=== PATIENT | male | born 1970 ===

== ENCOUNTER 2020-11-29 10:52 | Emergency (ER) | payer SELFPAY ==
[2020-11-29 10:57] VITALS: BP 141/93; PULSE 90; RESP 18; TEMP 98
--- NOTE | 2020-11-29 11:20 | ED ---
General Adult HPI - General Chief complaint: Recheck/Abnormal Lab/Rx Stated complaint: Wants covid test Source: patient, RN notes reviewed Mode of arrival: ambulatory Limitations: no limitations - History of Present Illness Initial comments: 50-year-old well-appearing male presents to the emergency room alert and oriented 4 for [place] Cov[place]. 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 He has no symptoms. He states he got his second vaccine dose just a few days ago. Severity scale (1-10): 0 Associated Symptoms: denies other symptoms Treatments Prior to Arrival: none - Related Data Allergies Allergy/AdvReac Type Severity Reaction Status Date / Time No Known Allergies Allergy Verified 11/29/20 10:57 Review of Systems ROS Statement: Those systems with pertinent positive or pertinent negative responses have been documented in the HPI. ROS Other: All systems not noted in ROS Statement are negative. Past Medical History Past Medical History: No Reported History History of Any Multi-Drug Resistant Organisms: None Reported Past Surgical History: No Surgical Hx Reported Past Psychological History: No Psychological Hx Reported Smoking Status: Current some day smoker Past Alcohol Use History: Occasional Past Drug Use History: None Reported General Exam Limitations: no limitations General appearance: alert, in no apparent distress Head exam: Present: atraumatic, normocephalic, normal inspection Eye exam: Present: normal appearance, PERRL, EOMI. Absent: scleral icterus, conjunctival injection, periorbital swelling ENT exam: Present: normal exam, normal oropharynx, mucous membranes moist Neck exam: Present: full ROM Respiratory exam: Present: normal lung sounds bilaterally. Absent: respiratory distress, wheezes, rales, rhonchi, stridor, decreased breath sounds Cardiovascular Exam: Present: regular rate, normal rhythm, normal heart sounds. Absent: systolic murmur, diastolic murmur, rubs, gallop, clicks Neurological exam: Present: alert, oriented X3, CN II-XII intact Psychiatric exam: Present: normal affect, normal mood Skin exam: Present: warm, dry, intact, normal color. Absent: rash Course Vital Signs 11/29/20 10:53 Temperature 98.0 F Pulse Rate 90 Respiratory 18 Rate Blood Pressure 141/93 O2 Sat by Pulse 96 Oximetry Medical Decision Making - Medical Decision Making Patient is well-appearing with no complaints. He states he was here only for a Covid test to go back to work. His Covid test was negative. - Lab Data Lab Results 11/29/20 Range/Units 11:18 Coronavirus (PCR) Not Detected (Not Detectd) Disposition Clinical Impression: Normal exam Disposition: HOME SELF-CARE Condition: Good Additional Instructions: Covid test today is negative. Is patient prescribed a controlled substance at d/c from ED?: No Referrals: None,Stated [Primary Care Provider] - 1-2 days Time of Disposition: 12:24
== END 2020-11-29 12:39 | disposition home or self-care (01) ==
LOC: EDBD → EC 10:52
DX: Z11.52 Encounter for screening for COVID-19 (principal); Z20.822 Contact with and (suspected) exposure to COVID-19; F17.200 Nicotine dependence, unspecified, uncomplicated
CPT/HCPCS: 87635; 99282